=== PATIENT | female | born 1975 | race Caucasian/White ===

== ENCOUNTER 2024-08-22 19:15 | Emergency (ER) | payer MEDICAID ==
[~2024-08-22] VITALS: Ht 154.9 cm; Wt 86.2 kg
[2024-08-22] MEDS ORDERED: AMOX500C2 PO (19:50)
[2024-08-22] MEDS ORDERED: MECL-159 PO (19:50)
[2024-08-22 19:54] VITALS: BP 129/90; TEMP 98.1; O2SAT 99
== END 2024-08-22 19:55 | disposition home or self-care (01) ==
LOC: ER 19:22
DX: R11.2 Nausea with vomiting, unspecified (principal); G47.00 Insomnia, unspecified; H92.02 Otalgia, left ear; Z79.899 Other long term (current) drug therapy; Z60.2 Problems related to living alone

== ENCOUNTER 2025-01-03 12:31 | Emergency (ER) | payer MEDICAID, OTHER ==
[~2025-01-03] VITALS: Ht 154.9 cm; Wt 69.4 kg
[~2025-01-03 12:31] MED LIST: AMOX500C2 PO; MECL-159 PO
[2025-01-03 12:40] VITALS: BP 137/91; TEMP 98.2
[2025-01-03] MEDS ORDERED: ALBU18HF2 INH (13:19)
[2025-01-03] MEDS ORDERED: PRED20TA PO (13:19)
[2025-01-03 13:27] VITALS: O2SAT 100
== END 2025-01-03 13:20 | disposition home or self-care (01) ==
LOC: ER 12:35
DX: R05.9 Cough, unspecified (principal); J45.909 Unspecified asthma, uncomplicated; Z79.52 Long term (current) use of systemic steroids; Z60.2 Problems related to living alone
CPT/HCPCS: 71045-TC